=== PATIENT | male | born 1970 | race Caucasian/White ===

== ENCOUNTER 2021-08-29 19:23 | Emergency (ER) | payer OTHER ==
[2021-08-29 20:16] LABS: HEMOGLOBIN 17.6 gm/dl (14.0-17.5); RED BLOOD COUNT 5.31 M/UL (4.20-5.50); WHITE BLOOD COUNT 6.4 K/UL (4.5-11.0)
[2021-08-29 20:38] LABS: BUN/CREATININE RATIO 14 (0-10)
== END 2021-08-29 23:00 | disposition home or self-care (01) ==
LOC: ER1 19:23
PROVIDERS: Physician Assistant Medical
DX: R10.30 Lower abdominal pain, unspecified (principal); Z87.442 Personal history of urinary calculi
CPT/HCPCS: 71045; 80053; 81001; 84484; 85025; 85652; 86140; 93005; 96374; 96375; 99284; J2270; J2405; Q9967